=== PATIENT | female | born 1995 | race Two or more races ===

== ENCOUNTER 2017-02-03 20:15 | Emergency (ER) | payer MEDICAID ==
[~2017-02-03] VITALS: Ht 154.9 cm; Wt 59.0 kg
[2017-02-03 20:50] VITALS: BP 122/68
[2017-02-03] MEDS ORDERED: Acetaminophen 500mg (ES) tab ORAL ONE (21:00)
[2017-02-03] MEDS ORDERED: ACETAMINOPHEN500 M7 PO (21:17)
[2017-02-03 21:45] VITALS: BP 118/66
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
[2017-02-03 22:50] VITALS: BP 121/68
[2017-02-03 22:55] VITALS: BP 121/68
[2017-02-03 23:28] VITALS: BP 121/68
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
== END 2017-02-03 22:55 | disposition home or self-care (01) ==
LOC: EMR 21:13
DX: O26.90 Pregnancy related conditions, unspecified, unspecified trimester (principal); R10.30 Lower abdominal pain, unspecified; V89.2XXA Person injured in unspecified motor-vehicle accident, traffic, initial encounter; Y93.9 Activity, unspecified; Y99.9 Unspecified external cause status
CPT/HCPCS: 76801; 76830; 99283